=== PATIENT | male | born 1955 | race African-American/Black ===

== ENCOUNTER 2018-01-22 10:34 | Emergency (ER) | payer SELFPAY | END 2018-01-22 13:29 | disposition left against medical advice (07) | LOC: FTE 13:29 | DX: S76.911A Strain of unspecified muscles, fascia and tendons at thigh level, right thigh, initial encounter (principal); I10 Essential (primary) hypertension; X58.XXXA Exposure to other specified factors, initial encounter; Y92.39 Other specified sports and athletic area as the place of occurrence of the external cause | CPT/HCPCS: 99282 ==